=== PATIENT | female | born 1985 | race Caucasian/White ===

== ENCOUNTER 2016-05-25 16:51 | Emergency (ER) | payer MEDICAID ==
[2016-05-25 17:45] LABS: Hematocrit 42.8 % (37.0-47.0); Hemoglobin 14.7 gm/dL (12.5-16.0); Mean Corpuscular Hemoglobin 31.6 pg (27-31); Mean Corpuscular Hgb Conc 34.3 g/dl (32-36); Mean Platelet Volume 10.1 fl (6.0-9.5); Neutrophil # 4.3 K/mm3 (1.3-6.0); Neutrophil % 70.2 % (42-75.0); Platelet Count 229 K/mm3 (150-450); Red Blood Count 4.65 M/mm3 (4.2-5.4); Red Cell Distribution Width 12.2 % (11.5-14.0); White Blood Count 6.1 K/mm3 (4.0-10.5)
--- NOTE | 2016-05-25 17:46 | ERNOTE ---
Abdominal HPI - General Chief Complaint: Abdominal Pain Time Seen by Provider: 05/25/16 17:23 Source: patient Exam Limitations: no limitations - Immun/Allergies/Home Medications Immunizatons: IMMUNIZATION HX Immunizations Up to Date Yes History of Influenza Vaccine Yes Hx Pneumococcal Vaccination No Allergies/Adverse Reactions: Allergies trimethoprim [From Bactrim] Allergy (Intermediate, Verified 05/25/16 17:12) hallucinates morphine Adverse Reaction (Intermediate, Verified 05/25/16 17:12) N/V, HALLUCINATES adhesive Adverse Reaction (Mild, Verified 05/25/16 17:12) RASH sulfamethoxazole [From Bactrim] Adverse Reaction (Unknown, Verified 05/25/16 17: 12) hallucinates Home Medications: HOME MEDICATIONS Sertraline HCl [Zoloft] 100 mg PO DAILY 08/07/14 [Last Taken Unknown] carBAMazepine [Tegretol] 200 mg PO BID 08/07/14 [Last Taken Unknown] Doxycycline Hyclate [Vibratab] 100 mg PO BID #14 tablet 05/25/16 [Last Taken Unknown] Hydrocodone/Acetaminophen [Lortab 5-325 mg Tablet] 1 - 2 each PO QID PRN #12 tablet 05/25/16 [Last Taken Unknown] - History of Present Illness Narrative: complaining of suprapubic sharp pain. No dysuria. LMP was Apr 23. No urinary symptoms. Has a tubal but thinks her symptoms feels like a miscarriage. She has 2 children at home. No bowel symptoms. No fever. Date (Duration): 05/25/16 Timing: constant Quality: moderate Activities at Onset: other - wrestling around with family Modifying Factors - (Improves): Present: rest Modifying Factors - (Worsens): Present: movement Associated Symptoms: Present: vomiting - spit up a bit of blood. Absent: headache Prior Abdominal Problems: Present: none Review of Systems - Review of Systems Constitutional: Present: no symptoms reported. Absent: fever, chills Cardiology: Present: no symptoms reported. Absent: chest pain, palpitations, syncope Gastrointestinal/Abdominal: Present: abdominal pain. Absent: diarrhea, constipation Musculoskeletal: Present: no symptoms reported. Absent: back pain, muscle pain Skin: Present: no symptoms reported Neurological: Present: no symptoms reported Psych: Present: no symptoms reported - Patient's Past Medical History Patient History - Medical: Anxiety, Depression, Headache, Seizures Patient History - Cardiac/Respiratory: No pertinent hx Patient History - Cancer: No Hx of Cancer Patient History - Surgical Procedures: Cholecystectomy, D & C, Ear Tubes, Tubal Ligation, T & A Patient History - Other: None LMP (Calendar): 03/12/16 - Social History Living Situations: home Abuse History: No History of abuse Psych History: No pertinent hx Alcohol Use: none Drug Use: none - Immunizations Immunizations Up to Date: Yes Hx Pneumococcal Vaccination: No History of Influenza Vaccine: Yes Physical Exam - Physical Exam General Appearance: Present: wd/wn, alert, mild distress Eye Exam: Normal inspection: bilateral, PERRL: bilateral Neck: Present: normal inspection Respiratory: Present: no respiratory distress, normal breath sounds, chest nontender, lungs clear Cardiovascular/Chest: Present: regular rate, rhythm, no murmur, normal peripheral pulses Gastrointestinal/Abdominal: Present: normal bowel sounds, nontender, nondistended, no organomegaly, tenderness - suprapubic, other - obese Back Exam: Present: normal inspection, decreased range of motion Extremity Exam: Present: normal inspection, no edema Neurological Exam: Present: alert, oriented, normal mood/affect Skin Exam: Present: normal color, warm/dry, cool/dry Pelvic Exam: Present: active bleeding - very minimal cervical bleeding, cervical motion tendernes - mild, tender uterus. Absent: discharge, tender adnexa ED Progress - Results and Orders Patient's Lab Results:: I have reviewed the patient's lab results. - Vital Signs Patient's Vital Signs:: I have reviewed the patient's vital signs. Vital Signs: Vital Signs 05/25/16 17:07 Temperature 37.0 C Pulse Rate 97 Respiratory 12 Rate Blood Pressure 148/101 O2 Sat by Pulse 93 Oximetry - Progress/Reassessment Chief Complaint: Abdominal Pain Departure - Departure Clinical Impression: Abdominal pain, Constipation Disposition: Home self-care Condition: Good Instructions: Pelvic Pain, Female, [id number] Additional Instructions: Follow up with Dr. Myers for a gynecologic exam. Drink the entire bottle of Citroma tonight. Finish the antibiotics. Use the pain medication only as needed. Referrals: Aurelio Abbott DO [Primary Care Provider] - Prescriptions: Doxycycline Hyclate [Vibratab] 100 mg PO BID #14 tablet Hydrocodone/Acetaminophen [Lortab 5-325 mg Tablet] 1 - 2 each PO QID PRN #12 tablet PRN Reason: Pain
[2016-05-25 18:01] LABS: Albumin * 3.8 gm/dl (3.4-5.0); Anion Gap 15.2 mmol/L (6.8-13.8); BUN/Creatinine Ratio 14.8 (9.0-21.6); Bilirubin, Total 0.3 mg/dL (0.0-1.1); Ca. Corrected For Albumin 8.8 mg/dL (8.4-10.2); Carbon Dioxide 24.6 mmol/L (24-32.6); Potassium 3.8 mmol/L (3.4-4.6); Total Protein 7.5 gm/dL (6.2-8.2)
[2016-05-25 18:03] LABS: Urine Bilirubin Negative (NEGATIVE); Urine Blood Negative /ul (NEGATIVE); Urine Ketone Negative (NEGATIVE); Urine Nitrite Negative (NEGATIVE); Urine Protein 15 mg/dL (NEGATIVE); Urine Specific Gravity 1.025 SP.GR. (1.005-1.010); Urine Urobilinogen Normal (NORMAL)
[2016-05-25 18:16] LABS: Urine Appearance Slightly Cloudy; Urine Bacteria None Seen; Urine Color Yellow; Urine RBC None Seen /hpf (0-5); Urine WBC None Seen /hpf (0-5)
[2016-05-25] MEDS ORDERED: NALBUPHINE HCL 20 MG/ML AMPUL IM ONE (19:03)
[2016-05-25] MEDS ORDERED: PROMETHAZINE HCL 50 MG/ML AMPUL IM ONE ×2 (19:04→19:12)
[2016-05-25] MEDS ORDERED: NALBUPHINE HCL 20 MG/ML AMPUL ONE (19:12)
[2016-05-25] MEDS ORDERED: MAGNESIUM CITRATE 300 ML BTL PO ONE (20:29)
[2016-05-25] MEDS ORDERED: LIDOCAINE HCL 20 ML VIAL ONE (20:35)
[2016-05-25] MEDS ORDERED: MAGNESIUM CITRATE 300 ML BTL ONE (20:35)
[2016-05-25 20:51] VITALS: BP 128/86
== END 2016-05-25 20:50 | disposition home or self-care (01) ==
LOC: ER 16:51
DX: K59.00 Constipation, unspecified (principal); R10.9 Unspecified abdominal pain